=== PATIENT | male | born 1970 | race Caucasian/White ===

== ENCOUNTER 2016-12-21 10:59 | Inpatient (IN) | payer BC ==
[~2016-12-21] VITALS: Ht 175.3 cm; Wt 86.9 kg
[2016-12-21] VITALS (27 sets, daily range): BP systolic 98–131; BP diastolic 47–77; PULSE 62–84; RESP 12–20; Ht 175.3 cm; Wt 86.9 kg
--- NOTE | 2016-12-21 09:09 | PREOPHP ---
DATE OF ADMISSION: 12/21/2016 HISTORY OF PRESENT ILLNESS: This is a pleasant, though anxious 46-year-old male who underw ent a diverticular resection in 04/2016. Within several weeks following this surgery, he began havi ng obstructive symptoms and subsequently developed a stricture of his colon, including the anastomos is and proximally for 5 to 6 cm. He had 2 attempts at ballooning the stricture, which were unsucces sful and they subsequently placed a colonic stent. Since that time, he has continued to have obstru ctive symptoms. He is only able to tolerate a very limited diet and at times has to restrict himsel f to a clear liquid diet. His prior problems dated back to 2013 when he had several diverticulitis episodes, which ultimately led to his elective diverticular resection being performed at [facility]. With his last colonoscopy, they placed a colonic stent but could not view the proximal co anshu. He was sent to me by his top trimmer, Dr. Oliverio Fuller. PAST MEDICAL HISTORY: SURGICAL: Diverticular resection in 04/2016, pilonidal surgery in the past, rectal surgery for a fi stula in 2007, and colonoscopies done in 2013 and August 2016. He had ankle surgery in 1996. MEDICAL ILLNESSES: None, though the patient is somewhat overweight, but he has lost 60 pounds in last year because of his problems with diverticular disease and stricture. MEDICATIONS: He takes: 1. Nexium. 2. Losartan. 3. Hydrochlorothiazide. ALLERGIES: NO KNOWN DRUG ALLERGIES. FOOD SENSITIVITIES: None. REVIEW OF SYSTEMS: Noncontributory. FAMILY HISTORY: Patient has no significant family history. Specifically, no colorectal cancer. PHYSICAL EXAMINATION: GENERAL: The patient is a healthy-appearing 46-year-old male in no acute distress. HEENT: Head normocephalic and atraumatic. Eyes: Extraocular muscles intact. Pupils equal, round and reactive to light and accommodation. Ears, nose and throat: Grossly without any lesions or exu dates. NECK: Supple and without adenopathy. No carotid bruits are noted. HEART: Regular rate and rhythm without any rubs, gallops, or murmurs. LUNGS: Clear to auscultation and percussion. ABDOMEN: Soft, nondistended, nontender. Bowel sounds heard in all 4 quadrants. He had some mild t enderness in the left lower quadrant which is overlying the stent. He has a well-healed abdominal i ncision. EXTREMITIES: No cyanosis, clubbing, or edema. NEUROLOGICAL: The patient alert and oriented x3. Cranial nerves II through XII are grossly intact. IMPRESSION: The patient has developed a colonic stricture status post diverticular resection. Unfo rtunately, the colonic stent has made this more complex because it cannot be removed without removin g the portion of colon involved itself. I have had a lengthy discussion with the patient. I have r ecommended that he come in for elective surgery. We will need to remove the portion of the colon th at contains a stricture and the colonic stent, and perform an anastomosis. If there is undue inflam mation, he may be in need of a temporary diverting colostomy or ileostomy. I have discussed the pro cedure with him in great detail. PLAN: Admission to the hospital for same day surgery, at which time we will perform an exploratory laparotomy, left colon resection with primary anastomosis and possible diverting stoma. Dictated By: BECKA TONG MD, CH/JOSY Conf#: [id number] DID#: [id number]
[2016-12-21] MEDS ORDERED: ZIAC5 PO (11:21)
[2016-12-21] MEDS ORDERED: ESOM40CA PO (11:21)
[2016-12-21] MEDS ORDERED: CEFAZOLIN 2 GM/50 ML (PMX) 50 ML IVPB SCH (12:30)
[2016-12-21] MEDS ORDERED: Metronidazole 500 MG in NS 100 ML IVPB SCH (12:30)
[2016-12-21] MEDS: LACTATED RINGER'S 1,000 ML IV* SCH (12:30)
[2016-12-21] MEDS ORDERED: MIDAZOLAM 1 MG/ML 2 ML INJ ONE (13:13)
[2016-12-21] MEDS ORDERED: BUPIVACAINE 0.5% ON-Q-PUMP 270 ML ONE (16:14)
[2016-12-21] MEDS ORDERED: morphine 10 MG INJ ONE (16:26)
[2016-12-21] MEDS ORDERED: BUPIVACAINE 0.5% (SDV) 30 ML INJ ONE (16:33)
[2016-12-21] MEDS ORDERED: ONDANSETRON 4 MG INJ ONE (16:47)
[2016-12-21] MEDS ORDERED: LIDOCAINE 2% (SDV) 5 ML INJ ONE (16:49)
[2016-12-21] MEDS ORDERED: NEOSTIGMINE 3 MG/3 ML SYRINGE ONE (16:49)
[2016-12-21] MEDS ORDERED: ROCURONIUM 50 MG INJ ONE (16:49)
[2016-12-21] MEDS ORDERED: GLYCOPYRROLATE 0.4 MG INJ ONE (16:49)
[2016-12-21] MEDS ORDERED: PROPOFOL 20 ML ONE (16:49)
[2016-12-21] MEDS ORDERED: metroNIDAZOLE 500 MG/NS (PMX) 100 ML IVPB ONE (16:50)
[2016-12-21] MEDS ORDERED: CEFAZOLIN 1 GM INJ ONE (16:50)
[2016-12-21] MEDS ORDERED: MEPERIDINE 25 MG INJ ONE (16:58)
[2016-12-21] MEDS: D5W-0.45 NACL + KCL 10 MEQ 1,000 ML IV SCH ×2 (16:59→22:46)
--- NOTE | 2016-12-21 16:59 | SIPON ---
Date/Time of Note Date/Time of Note DATE: 12/21/16 TIME: 16:55 Operative Report Preoperative Diagnosis Chronic partial colonic obstruction Postoperative Diagnosis Same Operation/Procedure Performed Laparoscopic -Assisted left colon/ LAR. Omentoplasty. Placement of On-Q pain catheter. Proctosigmoidoscopy Surgeon Rad Tong MD assistant corporate secretary Bleu Abreu MD Anesthesia: general Estimated blood loss: other (500cc) Transfusion Required none Specimen Left colon/ prox. rectum w/ colonic stent Grafts/Implants none Complications none RAD TONG MD Dec 21, 2016 16:59
[2016-12-21] MEDS ORDERED: MEPERIDINE 25 MG INJ IV PRN (17:00)
[2016-12-21] MEDS ORDERED: HYDROmorphONE (0.2 MG/ML) 10ML SYG IV PRN ×2 (17:00)
[2016-12-21] MEDS ORDERED: DIPHENHYDRAMINE 50 MG INJ IV PRN ×2 (17:00)
[2016-12-21] MEDS ORDERED: MIDAZOLAM 1 MG/ML 2 ML INJ IV PRN (17:00)
[2016-12-21] MEDS ORDERED: ONDANSETRON 4 MG INJ IV PRN ×2 (17:00)
[2016-12-21] MEDS ORDERED: FENTAnyl 50 MCG/ML VIAL IV PRN (17:00)
[2016-12-21] MEDS: ACETAMINOPHEN 1000MG/100ML IV 100 ML IVPB SCH ×2 (17:32→22:46)
[2016-12-21] MEDS: CEFAZOLIN 2 GM/50 ML (PMX) 50 ML IVPB SCH (17:32)
[2016-12-21] MEDS: metroNIDAZOLE 500 MG/NS (PMX) 100 ML IVPB SCH (17:42)
[2016-12-21 18:09] LABS: HEMATOCRIT 36.8 % (42.0-52.0); HEMOGLOBIN 12.4 g/dl (14.0-18.0)
[2016-12-21 18:38] LABS: CREATININE 0.9 mg/dl (0.61-1.24); POTASSIUM 3.4 mmol/L (3.5-5.1)
[2016-12-21 18:39] LABS: CALCIUM 8.3 mg/dl (8.4-10.2)
[2016-12-21 19:20] LABS: ADD UMIC YES; UR ASCORBIC ACID NEGATIVE (NEGATIVE); UR BILIRUBIN (Dip) NEGATIVE (NEGATIVE); UR BLOOD (Dip) 2+ mg/dL (NEGATIVE); UR CLARITY CLEAR (CLEAR); UR COLOR YELLOW (YELLOW); UR GLUCOSE (Dip) NEGATIVE (NEGATIVE); UR KETONES (Dip) 1+ mg/dL (NEGATIVE); UR LEUKOCYTE ESTERASE (Dip) NEGATIVE Leu/ul (NEGATIVE); UR MUCUS FEW /HPF (NONE SEEN); UR NITRITE (Dip) NEGATIVE (NEGATIVE); UR RBC 48 /HPF (0-5); UR SPECIFIC GRAVITY (Dip) 1.017 (1.003-1.030); UR TOTAL PROTEIN (Dip) 1+ mg/dl (NEGATIVE); UR UROBILINOGEN (Dip) NEGATIVE (NEGATIVE)
[2016-12-21] MEDS: HYDROmorphONE 0.5 MG/0.5 ML SYG IV PRN (21:32)
[2016-12-21] MEDS: LORAZEPAM 2 MG INJ IV PRN (22:47)
[2016-12-22 00:29] VITALS: BP 101/62; RESP 20
[2016-12-22] MEDS: CEFAZOLIN 2 GM/50 ML (PMX) 50 ML IVPB SCH ×2 (00:37→08:13)
[2016-12-22] MEDS: metroNIDAZOLE 500 MG/NS (PMX) 100 ML IVPB SCH ×2 (01:27→09:43)
[2016-12-22] MEDS: LORAZEPAM 2 MG INJ IV PRN ×2 (01:27→21:25)
[2016-12-22] MEDS: HYDROmorphONE 0.5 MG/0.5 ML SYG IV PRN ×4 (02:41→16:38)
[2016-12-22 04:30] VITALS: BP 107/62; RESP 20
[2016-12-22 05:14] LABS: BASOPHILS % 0.1 % (0.0-2.0); EOSINOPHILS % 0.2 % (0.0-7.0); HEMATOCRIT 34.6 % (42.0-52.0); HEMOGLOBIN 11.4 g/dl (14.0-18.0); LYMPHOCYTES # 1.9 10^3/ul (0.8-2.9); LYMPHOCYTES % 22.9 % (15.0-51.0); MEAN CORPUSCULAR HEMOGLOBIN 29.1 pg (29.0-33.0); MEAN CORPUSCULAR HGB CONC 32.9 g/dl (32.0-37.0); MEAN CORPUSCULAR VOLUME 88.3 fl (82.0-101.0); MEAN PLATELET VOLUME 8.9 fl (7.4-10.4); MONOCYTE # 0.6 10^3/ul (0.3-0.9); MONOCYTES % 7.2 % (0.0-11.0); NEUTROPHIL # 5.8 10^3/ul (1.6-7.5); NEUTROPHILS % 69.2 % (39.0-77.0); PLATELET COUNT 237 10^3/UL (140-415); RED BLOOD COUNT 3.92 10^6/ul (4.70-6.10); RED CELL DISTRIBUTION WIDTH 13.2 % (11.5-14.5); WHITE BLOOD COUNT 8.4 10^3/ul (4.8-10.8)
[2016-12-22] MEDS: PANTOPRAZOLE (EC) 40 MG TAB PO SCH (05:30)
[2016-12-22] MEDS: ACETAMINOPHEN 1000MG/100ML IV 100 ML IVPB SCH ×4 (05:30→23:11)
[2016-12-22 05:33] LABS: INR 1.11; PROTIME 14.3 Sec (12.2-14.2); PT RATIO 1.1
[2016-12-22 06:04] LABS: CREATININE 0.9 mg/dl (0.61-1.24); POTASSIUM 4.2 mmol/L (3.5-5.1)
--- NOTE | 2016-12-22 06:35 | PN ---
Date/Time of Note Date/Time of Note DATE: 12/22/16 TIME: 06:31 Assessment/Plan VTE Prophylaxis VTE Prophylaxis Intervention: LMWH, SCD's Lines/Catheters IV Catheter Type (from Nrsg): Peripheral IV Burnham in Place (from Nrsg): Yes Assessment/Plan Chief Complaint/Hosp Course Chronic partial large bowel obstruction ( secondary to colon surgery in 04/2016, and subsequent colonic stent) Problems: Assessment/Plan Pt is doing well on the morning of POD #1. Today we will start clear liquids, and get the pt out of bed to ambulate Subjective 24 Hr Interval Summary POD #1. The pt is alert, anxious and otherwise doing well. Pain control is adequate . VSS, urine output is adeq, and labs are normal. No nausea Constitutional: no complaints, urine output (adequate) Exam/Review of Systems Vital Signs Vitals Vital Signs Date Time Temp Pulse Resp B/P Pulse Ox O2 Delivery O2 Flow Rate FiO2 12/22/16 04:30 98.7 85 20 107/62 98 12/21/16 23:15 Room Air Intake and Output 12/21/16 12/21/16 12/22/16 15:00 23:00 07:00 Intake Total 2200 ml 630 ml 875 ml Output Total 950 ml 900 ml Balance 2200 ml -320 ml -25 ml Exam Constitutional: alert, oriented Psych: no complaints Gastrointestinal: soft Additional Comments Appropriate abdominal tenderness Results Result Diagram: 12/22/16 0447 12/22/16 0447 BECKA TONG MD Dec 22, 2016 06:35
[2016-12-22] MEDS ORDERED: SOD CHLORIDE 0.9% 500 ML IV ONE (07:00)
[2016-12-22 08:16] VITALS: BP 106/58; RESP 18
--- NOTE | 2016-12-22 08:42 | OPR ---
DATE OF OPERATION: 12/21/2016 INDICATIONS: The patient is a 46-year-old male who underwent elective diverticular resection in 04/2016. This was complicated by constipation, which ultimately revealed that the patient developed a stricture of the distal colonic segment. Several attempts were made at balloon dilatation and ultimately in 04/2016, a colonic stent was placed. This, however, did not adequately relieve his stricture and he continues to have obstructive symptoms having to restrict his diet to a low residue diet and mostly liquids. The patient had a history of chronic diverticulitis for the 2 to 3 years prior to this elective surgery. He now presents for elective surgery to remove the strictured segment of his colon and removed the colonic stent. PREOPERATIVE DIAGNOSIS: Chronic partial large bowel obstruction, status post diverticular resection. POSTOPERATIVE DIAGNOSIS: Chronic partial large bowel obstruction, status post diverticular resection. Final pathology pending. PROCEDURE: 1. Laparoscopic assisted left colon resection and low anterior resection. 2. Primary stapled colorectal anastomosis. 3. Omentoplasty. 4. Placement of On-Q pain catheter. 5. Proctosigmoidoscopy. SURGEON: Rad Bates MD. MODELING INSTRUCTOR: Blue Abreu MD. ANESTHESIA: General endotracheal anesthesia. ANESTHESIOLOGIST: Dr. Giraldo FLUIDS: 2100 of crystalloid. ESTIMATED BLOOD LOSS: 500 mL. DRAINS: None. COMPLICATIONS: None. FINDINGS AND TECHNIQUE: The patient was brought to the operating room and following successful induction of anesthesia, was placed in the lithotomy position utilizing the Uri stirrups. A Burnham catheter was placed. The patient's abdomen and perineum were then prepped with Betadine solution. The patient was then carefully draped with sterile towels and sheets. Next observing the abdomen, he had a well-healed Pfannenstiel incision, and 3 other small incisions over the upper abdomen from his laparoscopic procedure in 2016. Because the patient had a chronic inflammatory process, I elected to perform a Chu trocar placement just below the umbilicus. An incision was made with the #15 scalpel blade and deepened with electrocautery unit. The fascia was incised in the midline and then stay sutures of 2-0 Vicryl were placed. The abdomen was then entered under direct vision. The Chu trocar was then placed within the abdominal contents. A 10 mm 30-degree laparoscope was then inserted and the abdomen surveyed. The splenic flexure appeared to have been taken down and all the adhesions appeared to be in the left lower quadrant. There was diffuse inflammatory process in this area consistent with the previous stricture and stent placement. I then elected to reopen the Pfannenstiel incision and performed this part open. A Pfannenstiel incision was made with a #15 scalpel blade. The incision was then deepened with the electrocautery unit down to the fascia. The fascia was incised with the electrocautery unit. Subfascial flaps were created inferiorly and superiorly. The abdomen was then entered through the midline. A wound sheath was then placed through this for exposure. As previously noted, there was an inflammatory process in the left lower quadrant. Relatively normal descending colon entered into this area where it was thick and quite firm. There appeared to be a great deal of inflammatory reaction to probably the stricture first and then the stent placement. It was difficult to feel into the pelvis where the colorectal anastomosis must have been, thus began a very tedious dissection in the left lower quadrant. We identified what must have been the colon and carefully dissected as close to the colon as possible. The inflammatory process was indeed inflamed and thickened. There was very dense scarring in this area. It was a tedious process and it was carefully mobilized first laterally and then somewhat medially. Some blunt dissection occurred as well. We isolated a segment of the bowel immediately proximal to the inflammatory process and divided the mesentery with the electrocautery unit. The bowel was then divided with a single firing of the MIGUE 75 stapler. This was then packed off proximally. We then continued the dissection process finally identifying the end of the strictured bowel and eventually got into the pelvis. Circumferential dissection was then accomplished down into the pelvis below the pelvic brim. We were able to see some of the stent eroding through the colon itself. The dissection was carried out distally until we encountered normal rectum. There were no other normal structures that could be identified and thus the dissection was accomplished directly adjacent to the bowel wall. Once we circumferentially dissected out the rectum down prison down to the pelvis, we incised the mesentery in a circumferential fashion. Rigid proctoscopy was performed to identify the lower end of the stent. We placed a 3-0 silk suture to tessie this area. It was at this area we then divided the rectum with a single firing of the curved contour stapler device. The specimen was then removed from the field. Intraoperative pathologic consultation was obtained to look at the specimen. He noted a very scarred and strictured piece of bowel with no sign of any malignancy. We then thoroughly irrigated the area. We then mobilized the proximal bowel dividing the transverse colon away from the omentum and mobilizing the omentum on a pedicle for later use as an omentoplasty. We then ascertained that there was enough bowel to reach into the mid pelvis. To that end, the staple line was excised from the distal colon and a pursestring suture of 2-0 Prolene was placed and the anvil of #29 ILS stapler was placed within it. The office manager executive assistant then went to the perineal position and carefully advanced the barrel of the ILS stapler proximally. It reached the end of the stapled off rectum and the post was advanced through the staple line. The 2 ends were lined up, joined, docked and then fired. This resulted in 2 completely intact donuts that were of good health. Rigid proctoscopy was then performed to evaluate the anastomosis. Both pieces of bowel proximal and distal to the anastomosis were healthy and there was an intact anastomotic ring. Next, the pelvis filled with fluid, air insufflation was accomplished from a position distal to the anastomosis. No air leak was noted. Satisfied that we had an intact anastomosis, we removed the proctoscope and did a gown and glove change. We thoroughly irrigated the pelvis. We then took the mobilized omentum and placed it into the pelvis surrounding the anastomosis. We then felt for laparotomy sponges and removed them all and obtained a correct sponge and needle count x2. Next, we reinsufflated the abdomen and looked carefully for any signs of any bleeding. None being noted, the trocars were removed under direct vision. The fascial opening for the Chu trocar was then closed with interrupted sews of 2-0 Vicryl. The subcutaneous layer was closed with interrupted sews of 2-0 Vicryl and the skin closed with 4-0 Monocryl. We had utilized a 5 mm trocar in the right upper quadrant through an old incision for camera usage in order to do some of the mobilization of the omentum. It was removed and there was no bleeding. The skin was closed with 4- 0 Monocryl. We then placed a non-Q pain catheter subfascially and brought it out through a stab incision in the left lower quadrant. This was placed after closing the peritoneum with a running 2-0 Vicryl. The fascia was then closed with a running 0 looped PDS suture on top of the On-Q pain catheter. Each layer was thoroughly irrigated with warm normal saline solution. The subcutaneous layer was closed with interrupted sews of 2-0 Vicryl and the skin closed with a running 4-0 Monocryl subcuticular closure. All skin incisions had Dermabond applied to them. At the end of the procedure, sponge and needle counts were correct x2. The patient tolerated the procedure well, was transported to the recovery room in stable condition. Dictated By: RAD BATES MD, CH/JOSY Conf#: [id number] DID#: [id number] MTDD
[2016-12-22] MEDS: D5W-0.45 NACL + KCL 10 MEQ 1,000 ML IV SCH ×2 (08:59→14:32)
[2016-12-22] MEDS: ENOXAPARIN 40 MG/0.4 ML SYG SC SCH (09:55)
[2016-12-22] MEDS: LACTATED RINGER'S 1,000 ML IV* SCH (12:30)
[2016-12-22 16:10] VITALS: BP 119/71; RESP 18
[2016-12-22 21:14] VITALS: BP 110/70; RESP 20
[2016-12-22] MEDS: KETOROLAC 15 MG INJ IV PRN (21:24)
[2016-12-23 02:33] VITALS: BP 101/59; RESP 20
[2016-12-23] MEDS: D5W-0.45 NACL + KCL 10 MEQ 1,000 ML IV SCH ×4 (02:36→19:33)
[2016-12-23] MEDS: ACETAMINOPHEN 1000MG/100ML IV 100 ML IVPB SCH ×4 (04:51→22:14)
[2016-12-23 05:44] LABS: BASOPHILS % 0.4 % (0.0-2.0); EOSINOPHILS # 0.3 10^3/ul (0.0-0.5); EOSINOPHILS % 3.5 % (0.0-7.0); HEMATOCRIT 32.4 % (42.0-52.0); HEMOGLOBIN 10.7 g/dl (14.0-18.0); LYMPHOCYTES # 1.7 10^3/ul (0.8-2.9); LYMPHOCYTES % 22.8 % (15.0-51.0); MEAN CORPUSCULAR HEMOGLOBIN 29.9 pg (29.0-33.0); MEAN CORPUSCULAR VOLUME 90.5 fl (82.0-101.0); MEAN PLATELET VOLUME 9.1 fl (7.4-10.4); MONOCYTE # 0.6 10^3/ul (0.3-0.9); MONOCYTES % 8.7 % (0.0-11.0); NEUTROPHIL # 4.7 10^3/ul (1.6-7.5); NEUTROPHILS % 64.3 % (39.0-77.0); PLATELET COUNT 226 10^3/UL (140-415); RED BLOOD COUNT 3.58 10^6/ul (4.70-6.10); RED CELL DISTRIBUTION WIDTH 13.1 % (11.5-14.5); WHITE BLOOD COUNT 7.4 10^3/ul (4.8-10.8)
[2016-12-23 05:54] LABS: CALCIUM 8.4 mg/dl (8.4-10.2); CREATININE 0.88 mg/dl (0.61-1.24); POTASSIUM 4.1 mmol/L (3.5-5.1)
[2016-12-23] MEDS: PANTOPRAZOLE (EC) 40 MG TAB PO SCH (06:07)
[2016-12-23] MEDS: ENOXAPARIN 40 MG/0.4 ML SYG SC SCH (07:01)
[2016-12-23 08:31] VITALS: BP 106/56; RESP 20
[2016-12-23] MEDS: LACTATED RINGER'S 1,000 ML IV* SCH (13:41)
--- NOTE | 2016-12-23 14:10 | PN ---
Date/Time of Note Date/Time of Note DATE: 12/23/16 TIME: 14:08 Assessment/Plan VTE Prophylaxis VTE Prophylaxis Intervention: ambulation, LMWH, SCD's Lines/Catheters IV Catheter Type (from Nrs): Peripheral IV Ortiz in Place (from Nrs): Yes Assessment/Plan Chief Complaint/Hosp Course Chronic partial large bowel obstruction ( secondary to colon surgery in 04/2016, and subsequent colonic stent) Problems: Assessment/Plan Doing very well. Advance diet to full liq Subjective 24 Hr Interval Summary POD #2, pt is alert and oriented. Walking and lidia clear liquids.. Urine output is good and ortiz is out Constitutional: improved, no complaints Feeding: advancing diet Exam/Review of Systems Vital Signs Vitals Vital Signs Date Time Temp Pulse Resp B/P Pulse Ox O2 Delivery O2 Flow Rate FiO2 12/23/16 08:31 97.7 78 20 106/56 99 12/21/16 23:15 Room Air Intake and Output 12/22/16 12/22/16 12/23/16 15:00 23:00 07:00 Intake Total 600 ml 1225 ml 2000 ml Output Total 1500 ml Balance 600 ml 1225 ml 500 ml Exam Constitutional: alert, oriented Gastrointestinal: soft (Passin a littlem flatus) Results Result Diagram: 12/23/16 0449 12/23/16 0449 BECKA TONG MD Dec 23, 2016 14:10
[2016-12-23 15:23] VITALS: BP 100/59; PULSE 79; RESP 22
[2016-12-23 16:00] VITALS: BP 110/59; RESP 20
[2016-12-23 20:13] VITALS: BP 114/67; PULSE 82; RESP 18
[2016-12-23] MEDS: KETOROLAC 15 MG INJ IV PRN (22:15)
[2016-12-23] MEDS: LORAZEPAM 2 MG INJ IV PRN (22:15)
[2016-12-24 02:26] VITALS: BP 116/67; RESP 20
[2016-12-24] MEDS: ACETAMINOPHEN 1000MG/100ML IV 100 ML IVPB SCH ×4 (04:43→22:41)
[2016-12-24] MEDS: PANTOPRAZOLE (EC) 40 MG TAB PO SCH (04:44)
[2016-12-24] MEDS: D5W-0.45 NACL + KCL 10 MEQ 1,000 ML IV SCH ×2 (04:45→17:04)
[2016-12-24 05:19] LABS: BASOPHILS % 0.3 % (0.0-2.0); EOSINOPHILS # 0.4 10^3/ul (0.0-0.5); EOSINOPHILS % 6.3 % (0.0-7.0); HEMATOCRIT 29.6 % (42.0-52.0); HEMOGLOBIN 9.8 g/dl (14.0-18.0); LYMPHOCYTES # 2.3 10^3/ul (0.8-2.9); LYMPHOCYTES % 34.9 % (15.0-51.0); MEAN CORPUSCULAR HEMOGLOBIN 30.1 pg (29.0-33.0); MEAN CORPUSCULAR HGB CONC 33.1 g/dl (32.0-37.0); MEAN CORPUSCULAR VOLUME 90.8 fl (82.0-101.0); MONOCYTE # 0.5 10^3/ul (0.3-0.9); MONOCYTES % 7.7 % (0.0-11.0); NEUTROPHIL # 3.3 10^3/ul (1.6-7.5); NEUTROPHILS % 50.5 % (39.0-77.0); PLATELET COUNT 221 10^3/UL (140-415); RED BLOOD COUNT 3.26 10^6/ul (4.70-6.10); RED CELL DISTRIBUTION WIDTH 12.9 % (11.5-14.5); WHITE BLOOD COUNT 6.5 10^3/ul (4.8-10.8)
[2016-12-24 05:46] LABS: CALCIUM 8.3 mg/dl (8.4-10.2); CREATININE 0.75 mg/dl (0.61-1.24)
[2016-12-24 07:33] VITALS: BP 117/73; RESP 18
[2016-12-24] MEDS: ENOXAPARIN 40 MG/0.4 ML SYG SC SCH (08:06)
[2016-12-24] MEDS ORDERED: HYDROCODONE/APAP (5/325) TAB PO PRN (09:30)
--- NOTE | 2016-12-24 09:38 | PN ---
Date/Time of Note Date/Time of Note DATE: 12/24/16 TIME: 09:35 Assessment/Plan VTE Prophylaxis VTE Prophylaxis Intervention: ambulation, LMWH, SCD's Lines/Catheters IV Catheter Type (from Nrsg): Peripheral IV Burnham in Place (from Nrsg): Yes Assessment/Plan Chief Complaint/Hosp Course Chronic partial large bowel obstruction ( secondary to colon surgery in 04/2016, and subsequent colonic stent) Problems: Assessment/Plan Pt doing well. H/H has dropped w/o any Sx's. Will hold the lovenox dose for tomorrow so I can see his am labs first. Will add oral pain meds, and reduce IVF Subjective 24 Hr Interval Summary Constitutional: ambulates, no complaints Feeding: advancing diet Pain Control: well controlled Exam/Review of Systems Vital Signs Vitals Vital Signs Date Time Temp Pulse Resp B/P Pulse Ox O2 Delivery O2 Flow Rate FiO2 12/24/16 07:33 98.6 76 18 117/73 98 12/23/16 20:13 Room Air Intake and Output 12/23/16 12/23/16 12/24/16 15:00 23:00 07:00 Intake Total 100 ml 2460 ml 2300 ml Output Total 1400 ml 1700 ml Balance 100 ml 1060 ml 600 ml Exam Free Text/Dictation POD #3. Pt is ambulating well and passing flatus. Pain control is good. Excellent U/O Constitutional: alert, oriented, well developed Gastrointestinal: soft (Appropraitely tender) Additional Comments Incision is healing well Results Result Diagram: 12/24/16 0450 12/24/16 0450 BECKA TONG MD Dec 24, 2016 09:38
[2016-12-24 14:28] VITALS: BP 129/82; RESP 20
[2016-12-24] MEDS ORDERED: DIPHENHYDRAMINE 1%/ZINC 28.3 GM CR TOP PRN (18:00)
[2016-12-24 19:57] VITALS: BP 144/82; PULSE 78; RESP 18
[2016-12-24] MEDS: KETOROLAC 15 MG INJ IV PRN (22:42)
[2016-12-24] MEDS: LORAZEPAM 2 MG INJ IV PRN (22:42)
[2016-12-25] MEDS: PANTOPRAZOLE (EC) 40 MG TAB PO SCH (05:03)
[2016-12-25] MEDS: ACETAMINOPHEN 1000MG/100ML IV 100 ML IVPB SCH ×4 (05:04→23:15)
[2016-12-25 06:18] LABS: BASOPHILS % 0.3 % (0.0-2.0); EOSINOPHILS # 0.4 10^3/ul (0.0-0.5); EOSINOPHILS % 6.9 % (0.0-7.0); HEMATOCRIT 29.8 % (42.0-52.0); HEMOGLOBIN 9.8 g/dl (14.0-18.0); LYMPHOCYTES # 1.8 10^3/ul (0.8-2.9); LYMPHOCYTES % 30.6 % (15.0-51.0); MEAN CORPUSCULAR HEMOGLOBIN 29.9 pg (29.0-33.0); MEAN CORPUSCULAR HGB CONC 32.9 g/dl (32.0-37.0); MEAN CORPUSCULAR VOLUME 90.9 fl (82.0-101.0); MEAN PLATELET VOLUME 9.4 fl (7.4-10.4); MONOCYTE # 0.4 10^3/ul (0.3-0.9); MONOCYTES % 7.4 % (0.0-11.0); NEUTROPHIL # 3.1 10^3/ul (1.6-7.5); NEUTROPHILS % 54.5 % (39.0-77.0); PLATELET COUNT 224 10^3/UL (140-415); RED BLOOD COUNT 3.28 10^6/ul (4.70-6.10); RED CELL DISTRIBUTION WIDTH 13.1 % (11.5-14.5); WHITE BLOOD COUNT 5.8 10^3/ul (4.8-10.8)
[2016-12-25 07:00] VITALS: BP 120/75; RESP 18
[2016-12-25 07:06] LABS: CALCIUM 8.1 mg/dl (8.4-10.2); CREATININE 0.73 mg/dl (0.61-1.24); POTASSIUM 3.7 mmol/L (3.5-5.1)
[2016-12-25] MEDS: KETOROLAC 15 MG INJ IV PRN (08:09)
--- NOTE | 2016-12-25 10:30 | PN ---
Date/Time of Note Date/Time of Note DATE: 12/25/16 TIME: 10:28 Assessment/Plan VTE Prophylaxis VTE Prophylaxis Intervention: ambulation, SCD's Lines/Catheters IV Catheter Type (from Nrs): Peripheral IV Burnham in Place (from Nrs): No Assessment/Plan Chief Complaint/Hosp Course Chronic partial large bowel obstruction ( secondary to colon surgery in 04/2016, and subsequent colonic stent) Problems: Assessment/Plan POD #4 and doing well. Will probably go home in the am Mon, Subjective 24 Hr Interval Summary Pt is doing well and is POD #4. He had a small BM yesterday. Tolerating full liquids and passing flatus. Labs are normal Constitutional: BM, flatus, improved, no complaints Feeding: advancing diet Pain Control: well controlled Exam/Review of Systems Vital Signs Vitals Vital Signs Date Time Temp Pulse Resp B/P Pulse Ox O2 Delivery O2 Flow Rate FiO2 12/25/16 07:00 98.0 81 18 120/75 100 12/24/16 19:57 Room Air Intake and Output 12/24/16 12/24/16 12/25/16 15:00 23:00 07:00 Intake Total 100 ml 3100 ml 1450 ml Output Total 1700 ml 1300 ml Balance 100 ml 1400 ml 150 ml Exam Constitutional: alert, oriented Psych: anxiety Gastrointestinal: bowel sounds, soft Results Result Diagram: 12/25/16 0510 12/25/16 0510 BECKA TONG MD Dec 25, 2016 10:30
[2016-12-25 14:00] VITALS: BP 132/81; RESP 18
[2016-12-25] MEDS: LORAZEPAM 0.5 MG TAB PO PRN ×2 (14:12→22:14)
[2016-12-25 19:25] VITALS: BP 128/84; RESP 18
[2016-12-26] MEDS: KETOROLAC 15 MG INJ IV PRN (02:27)
[2016-12-26] MEDS: ACETAMINOPHEN 1000MG/100ML IV 100 ML IVPB SCH ×2 (05:00→05:11)
[2016-12-26] MEDS: PANTOPRAZOLE (EC) 40 MG TAB PO SCH (05:11)
[2016-12-26 05:21] LABS: BASOPHILS % 0.3 % (0.0-2.0); EOSINOPHILS # 0.3 10^3/ul (0.0-0.5); EOSINOPHILS % 4.4 % (0.0-7.0); HEMATOCRIT 28.9 % (42.0-52.0); HEMOGLOBIN 9.6 g/dl (14.0-18.0); LYMPHOCYTES # 2.1 10^3/ul (0.8-2.9); LYMPHOCYTES % 29.3 % (15.0-51.0); MEAN CORPUSCULAR HEMOGLOBIN 29.8 pg (29.0-33.0); MEAN CORPUSCULAR HGB CONC 33.2 g/dl (32.0-37.0); MEAN CORPUSCULAR VOLUME 89.8 fl (82.0-101.0); MONOCYTE # 0.5 10^3/ul (0.3-0.9); MONOCYTES % 7.4 % (0.0-11.0); NEUTROPHIL # 4.1 10^3/ul (1.6-7.5); NEUTROPHILS % 58.3 % (39.0-77.0); PLATELET COUNT 266 10^3/UL (140-415); RED BLOOD COUNT 3.22 10^6/ul (4.70-6.10); WHITE BLOOD COUNT 7.1 10^3/ul (4.8-10.8)
[2016-12-26 05:45] LABS: CALCIUM 8.4 mg/dl (8.4-10.2); CREATININE 0.77 mg/dl (0.61-1.24); POTASSIUM 3.8 mmol/L (3.5-5.1)
[2016-12-26 07:55] VITALS: BP 135/85; PULSE 78; RESP 18
[2016-12-26 08:00] VITALS: BP 135/85; RESP 18
--- NOTE | 2016-12-26 08:09 | PN ---
Date/Time of Note Date/Time of Note DATE: 12/26/16 TIME: 08:06 Assessment/Plan VTE Prophylaxis VTE Prophylaxis Intervention: ambulation, SCD's Lines/Catheters IV Catheter Type (from Nrsg): Peripheral IV Burnham in Place (from Nrsg): No Assessment/Plan Chief Complaint/Hosp Course Chronic partial large bowel obstruction ( secondary to colon surgery in 04/2016, and subsequent colonic stent) Problems: Assessment/Plan POD #5 Pt is stable, labs normal and lidia soft diet. Ready for DC, FU in 1 week Subjective 24 Hr Interval Summary Pt is doing well. Passing gas but minimal stool. Ambulating and urinating well Constitutional: ambulates, flatus, improved, no complaints Pain Control: well controlled Exam/Review of Systems Vital Signs Vitals Vital Signs Date Time Temp Pulse Resp B/P Pulse Ox O2 Delivery O2 Flow Rate FiO2 12/26/16 07:55 98.2 78 18 135/85 100 Room Air Intake and Output 12/25/16 12/25/16 12/26/16 15:00 23:00 07:00 Intake Total 400 ml 940 ml 900 ml Output Total 2000 ml 1200 ml Balance 400 ml -1060 ml -300 ml Exam Constitutional: alert, oriented Gastrointestinal: soft (Sl incisional pain now that OnQ pain pump is done and toradol is stopped. No erythema of wounds) Results Result Diagram: 12/26/16 0437 12/26/16 0436 BECKA TONG MD Dec 26, 2016 08:09
--- NOTE | 2016-12-26 08:12 | DS ---
Date/Time of Note Date/Time of Note DATE: 12/26/16 TIME: 08:10 Discharge Summary Admission/Discharge Info Admit Date/Time Dec 21, 2016 at 10:59 Discharge Date/Time 12/26/16 Discharge Diagnosis s/p resection of colonic stricture Patient Condition: Good Consults None Procedures Laparoscopic -assisted left colon and low anterior resection Hx of Present Illness Pt did extrememlt well post op. Was ambulating on POD#1 and advanced his diet quickly Hospital Course Chronic partial large bowel obstruction ( secondary to colon surgery in 04/2016, and subsequent colonic stent) Home Meds Reported Medications Esomeprazole Mag Trihydrate (Nexium) 40 Mg Capsule.dr, 40 MG PO DAILY, #30 CAP 12/21/16 Bisoprolol-Hydrochlorothiazide (Ziac) 5/6.25 Tablet, 1 TAB PO DAILY, TAB 12/21/16 Follow-up Plan FU in my office in 1 week Primary Care Provider Not On Staff Doctor Time spent on discharge: < 30 minutes Pending Labs Laboratory Tests Test 12/26/16 04:36 12/26/16 04:37 Sodium Level 141mmol/L (135-144) Potassium Level 3.8mmol/L (3.5-5.1) Chloride Level 109mmol/L (97-110) Carbon Dioxide Level 27mmol/L (21-31) Anion Gap 9 (8-16) Blood Urea Nitrogen 4mg/dl (7-20) Creatinine 0.77mg/dl (0.61-1.24) Glucose Level 88mg/dl (70-220) Calcium Level 8.4mg/dl (8.4-10.2) White Blood Count 7.110^3/ul (4.8-10.8) Red Blood Count 3.2210^6/ul (4.70-6.10) Hemoglobin 9.6g/dl (14.0-18.0) Hematocrit 28.9% (42.0-52.0) Mean Corpuscular Volume 89.8fl (82.0-101.0) Mean Corpuscular Hemoglobin 29.8pg (29.0-33.0) Mean Corpuscular Hemoglobin Concent 33.2g/dl (32.0-37.0) Red Cell Distribution Width 13.0% (11.5-14.5) Platelet Count 89126^3/UL (140-415) Mean Platelet Volume 9.0fl (7.4-10.4) Neutrophils % 58.3% (39.0-77.0) Lymphocytes % 29.3% (15.0-51.0) Monocytes % 7.4% (0.0-11.0) Eosinophils % 4.4% (0.0-7.0) Basophils % 0.3% (0.0-2.0) Nucleated Red Blood Cells % 0.0/100WBC (0.0-0.0) Neutrophils # 4.110^3/ul (1.6-7.5) Lymphocytes # 2.110^3/ul (0.8-2.9) Monocytes # 0.510^3/ul (0.3-0.9) Eosinophils # 0.310^3/ul (0.0-0.5) Basophils # 0.010^3/ul (0.0-0.1) Nucleated Red Blood Cells # 0.010^3/ul (0.0-0.0) BECKA TONG MD Dec 26, 2016 08:12
[2016-12-26] MEDS ORDERED: HCTZ PO SCH (09:00)
[2016-12-26] MEDS ORDERED: HYDROCHLOROTHIAZIDE 25 MG TAB PO SCH (09:00)
[2016-12-26] MEDS ORDERED: HYDROCHLOROTHIAZIDE 12.5 MG CAP PO SCH (09:00)
[2016-12-26] MEDS ORDERED: BISOPROLOL 5 MG TAB PO SCH (09:00)
[2016-12-26] MEDS ORDERED: BISOPROLOL PO SCH (09:00)
== END 2016-12-26 11:55 | disposition home or self-care (01) | DRG 331 ==
LOC: REC 10:59 → MS1 19:35
PROVIDERS: ADMIT Colon & Rectal Surgery; ATTEND Colon & Rectal Surgery
PROC: 0WUF07Z Supplement Abdominal Wall with Autologous Tissue Substitute, Open Approach (ICD-10-PCS; 2016-12-21)
PROC: 0DBP0ZZ Excision of Rectum, Open Approach (ICD-10-PCS; 2016-12-21)
PROC: 0DJD8ZZ Inspection of Lower Intestinal Tract, Via Natural or Artificial Opening Endoscopic (ICD-10-PCS; 2016-12-21)
PROC: 0DTG0ZZ Resection of Left Large Intestine, Open Approach (ICD-10-PCS; principal; 2016-12-21 12:30)
DX: K56.690 Other partial intestinal obstruction (principal)
CPT/HCPCS: 80048; 81001; 85014; 85018; 85025; 85610; 86850; 86900; 86901; 87086; 88307; 97116; 97162; J0131; J0690; J1170; J1200; J1650; J1885; J2060; J2175; J2250; J2270; J2405; J2710; J3010; J3480; J7040; J7120